=== PATIENT | male | born 1980 | race Caucasian/White ===

== ENCOUNTER 2018-02-17 10:54 | Emergency (ER) | payer SELFPAY ==
[~2018-02-17] VITALS: Ht 172.7 cm; Wt 90.0 kg
[2018-02-17] MEDS ORDERED: LIDOCAINE HCL/PF 1% 2ML VIAL INFIL ONE (12:15)
[2018-02-17] MEDS ORDERED: SODIUM CHLORIDE 0.9% 500 ML IV ONE (12:15)
[2018-02-17] MEDS ORDERED: ACETAMINOPHEN 650MG/20.3ML UDC PO ONE (12:45)
[2018-02-17] MEDS ORDERED: LIDOCAINE HCL 1% 20ML VIAL (Pyxis) INJ ONE (12:56)
[2018-02-17] MEDS ORDERED: ACETAMINOPHEN 500MG TABLET PO ONE (13:00)
[2018-02-17] MEDS ORDERED: TETRACAINE 0.5% OPHTH DROPS 4ML BOTHEYE ONE (13:00)
[2018-02-17] MEDS ORDERED: FAMOTIDINE 20MG TABLET PO ONE (15:15)
[2018-02-17] MEDS ORDERED: DEXAMETHASONE 10 MG/ML VIAL IM ONE (15:15)
[2018-02-17] MEDS ORDERED: DIPHENHYDRAMINE 25MG CAPSULE PO ONE (15:15)
[2018-02-17 19:09] VITALS: BP 128/65
== END 2018-02-17 19:19 | disposition home or self-care (01) ==
LOC: ER 10:54
DX: S01.81XA Laceration without foreign body of other part of head, initial encounter (principal); F15.10 Other stimulant abuse, uncomplicated; F91.1 Conduct disorder, childhood-onset type; H57.10 Ocular pain, unspecified eye; Y08.89XA Assault by other specified means, initial encounter; Y92.9 Unspecified place or not applicable
CPT/HCPCS: 12011; 70450; 70486; 76870; 93976; 99285; J1100; J3490; J7040; Q0163